=== PATIENT | female | born 1965 | race Caucasian/White ===

== ENCOUNTER 2017-11-04 04:46 | Emergency (ER) | payer OTHER ==
[~2017-11-04] VITALS: Ht 167.6 cm; Wt 51.8 kg
[2017-11-04] MEDS ORDERED: DEXAMETHASONE 4 MG/ML, 1ML IVPush ONE (05:30)
[2017-11-04] MEDS ORDERED: METOCLOPRAMIDE 5 MG/ML, 2ML IVPush ONE (05:30)
[2017-11-04] MEDS ORDERED: SODIUM CHLORIDE FLUSH 10ML SYR IVF ONE (05:30)
[2017-11-04] MEDS ORDERED: ACETAMINOPHEN 500 MG TABLET PO ONE (05:30)
[2017-11-04] MEDS ORDERED: KETOROLAC 30 MG/1 ML IVPush ONE (05:30)
[2017-11-04] MEDS ORDERED: SUMATRIPTAN 6MG/0.5ML SQ ONE ×2 (05:30→05:50)
[2017-11-04] MEDS ORDERED: SODIUM CHLORIDE 0.9% 1,000ML IVBOLUS ONE (05:30)
[2017-11-04] MEDS ORDERED: METOCLOPRAMIDE 5 MG/ML, 2ML ONE (05:37)
[2017-11-04] MEDS ORDERED: KETOROLAC 30 MG/1 ML ONE (05:37)
[2017-11-04] MEDS ORDERED: DEXAMETHASONE 4 MG/ML, 5ML ONE (05:37)
[2017-11-04] MEDS ORDERED: ACETAMINOPHEN 500 MG TABLET ONE (05:37)
[2017-11-04] MEDS: DIPHENHYDRAMINE 50 MG/ML, 1ML IVPush ONE ×2 (05:46→05:54)
[2017-11-04 07:23] VITALS: BP 129/41
== END 2017-11-04 07:57 | disposition home or self-care (01) ==
LOC: ED 07:02
DX: G43.011 Migraine without aura, intractable, with status migrainosus (principal)
CPT/HCPCS: 96372; 96374; 96375; 99284; J1100; J1200; J1885; J2765; J3030; J7030

== ENCOUNTER → 2018-02-27 | Outpatient (CLI) | payer OTHER ==
[~2018-02-27] MED LIST: BUPR300T4 PO; CLON0.25 PO; DOXY25TA18 PO; FLUO20TA25 PO; LAMO300T2 PO; SPIR50TA4 PO
[2018-02-27 13:11] LABS: CHLORIDE 103 mmol/L (98-107)
[2018-02-27 13:22] LABS: ALANINE AMINOTRANSFERASE 24 U/L (12-78); ALBUMIN 3.9 g/dL (3.4-5.0); ALKALINE PHOSPHATASE 55 U/L (45-117); ANION GAP 6 mmol/L (5-15); BILIRUBIN,TOTAL 0.5 mg/dL (0.2-1.0); CALCIUM 9.3 mg/dL (8.5-10.1); CREATININE 0.99 mg/dL (0.55-1.02); TOTAL PROTEIN 7.4 g/dL (6.4-8.2)
== END | disposition home or self-care (01) ==
LOC: STAR 02-25 13:42
PROVIDERS: ATTEND Surgery
DX: Z01.818 Encounter for other preprocedural examination (principal); K40.90 Unilateral inguinal hernia, without obstruction or gangrene, not specified as recurrent
CPT/HCPCS: 36415; 80053

== ENCOUNTER 2018-03-04 14:12 | Observation (INO) | payer OTHER ==
[2018-02-27 15:51] VITALS: BP 110/71
[~2018-03-04] VITALS: Ht 167.6 cm; Wt 76.3 kg
[2018-03-04] MEDS ORDERED: LACTATED RINGERS 1,000 ML IV SCH (14:46)
[2018-03-04] MEDS ORDERED: ACETAMINOPHEN 500 MG TABLET PO ONE (15:00)
[2018-03-04] MEDS ORDERED: GABAPENTIN 300 MG CAPSULE PO ONE (15:00)
[2018-03-04] MEDS ORDERED: MIDAZOLAM 1 MG/ML, 2ML ONE (15:12)
[2018-03-04] MEDS ORDERED: FENTANYL PF 250 MCG/5ML ONE (15:12)
[2018-03-04] MEDS ORDERED: PROPOFOL 10 MG/ML, 20ML ONE (15:13)
[2018-03-04] MEDS ORDERED: GLYCOPYRROLATE 0.2MG/1ML, 5ML ONE (15:13)
[2018-03-04] MEDS ORDERED: ONDANSETRON 2MG/ML, 2ML ONE (15:13)
[2018-03-04] MEDS ORDERED: DEXAMETHASONE 4 MG/ML, 1ML ONE (15:13)
[2018-03-04] MEDS ORDERED: ROCURONIUM 10MG/ML,5ML ONE (15:13)
[2018-03-04] MEDS ORDERED: NEOSTIGMINE 1 MG/ML, 10ML ONE (15:13)
[2018-03-04] MEDS ORDERED: CEFAZOLIN 1,000 MG ONE (15:13)
[2018-03-04 15:42] LABS: HCG UR SG 1.007 (1.003-1.030)
[2018-03-04] MEDS ORDERED: PROMETHAZINE 12.5 MG SUPP PR PRN (17:00)
[2018-03-04] MEDS ORDERED: ONDANSETRON 2MG/ML, 2ML IV PRN (17:00)
[2018-03-04] MEDS ORDERED: LABETALOL 5MG/ML, 20ML IV PRN (17:00)
[2018-03-04] MEDS ORDERED: MORPHINE SULFATE 4 MG/ML, 1ML IVPush PRN ×2 (17:00→21:00)
[2018-03-04] MEDS ORDERED: ONDANSETRON ODT 8 MG PO PRN (17:00)
[2018-03-04] MEDS ORDERED: PROMETHAZINE 25 MG/ML, 1ML IM PRN ×2 (17:00)
[2018-03-04] MEDS ORDERED: PROMETHAZINE 25 MG SUPP PR PRN (17:00)
[2018-03-04] MEDS ORDERED: PROMETHAZINE 25 MG/ML, 1ML IV PRN (17:00)
[2018-03-04] MEDS ORDERED: OXYcodone 5 MG/5 ML ORAL.SOL UDC PO PRN (17:00)
[2018-03-04] MEDS ORDERED: FENTANYL PF 100 MCG/2ML IV PRN (17:00)
[2018-03-04] MEDS ORDERED: hydrALAzine 20 MG/ML, 1ML IV PRN (17:00)
[2018-03-04] MEDS ORDERED: MEPERIDINE/PF 25MG/0.5ML IVPush PRN (17:00)
[2018-03-04] MEDS ORDERED: BUPIVACAINE/PF-EPI 0.5% 1:200K INFIL ONE (17:14)
[2018-03-04] MEDS ORDERED: KETOROLAC 30 MG/1 ML ONE (17:28)
[2018-03-04] MEDS ORDERED: OXYcodone 5 MG/5 ML ORAL.SOL UDC ONE (17:55)
[2018-03-04] MEDS ORDERED: FENTANYL PF 100 MCG/2ML ONE (17:55)
[2018-03-04] MEDS ORDERED: BUPIVACAINE/PF-EPI 0.5% 1:200K ONE (18:03)
[2018-03-04] MEDS ORDERED: hydrALAzine 20 MG/ML, 1ML ONE (18:05)
[2018-03-04] MEDS ORDERED: METOPROLOL 1 MG/ML, 5ML ONE (18:05)
[2018-03-04] MEDS ORDERED: HYDROmorphone 2 MG/ML, 1ML ONE (18:05)
[2018-03-04] MEDS: HYDROmorphone 2 MG/ML, 1ML IVPush PRN ×2 (18:07→18:14)
[2018-03-05] MEDS: OXYcodone/APAP 5/325MG TABLET PO PRN ×3 (00:43→13:04)
[2018-03-05 03:02] VITALS: BP 96/51
[2018-03-05 04:51] LABS: BASOPHILS # (AUTO) 0.03 x10^3/uL (0-0.1); BASOPHILS % (AUTO) 0 % (0-1); EOSINOPHILS % (AUTO) 0 % (1-7); LYMPHOCYTES # (AUTO) 0.52 x10^3/uL (1-3.4); LYMPHOCYTES % (AUTO) 4 % (22-44); MD NO; MEAN CORPUSCULAR HEMOGLOBIN 31.7 pg (27.0-34.8); MEAN CORPUSCULAR HGB CONC 33.2 g/dL (32.4-35.8); MEAN CORPUSCULAR VOLUME 95.6 fL (80-100); MEAN PLATELET VOLUME 8.4 fL (7.4-10.4); MONOCYTES # (AUTO) 0.75 x10^3/uL (0.2-0.8); MONOCYTES % (AUTO) 5 % (2-9); NEUTROPHILS # (AUTO) 13.22 x10^3/uL (1.8-6.8); NEUTROPHILS % (AUTO) 91 % (42-75); PLATELET COUNT 213 x10^3/uL (130-400); RED BLOOD COUNT 4.24 x10^6/uL (3.82-5.3); RED CELL DISTRIBUTION WIDTH 12.6 % (9.6-15.2)
[2018-03-05 07:57] VITALS: BP 97/52
[2018-03-05 10:29] VITALS: BP 109/64
[2018-03-05] MEDS ORDERED: OXYC-302 PO (10:52)
[2018-03-05 13:12] VITALS: BP 117/74
== END 2018-03-05 16:01 | disposition home or self-care (01) ==
LOC: OR 14:12 → 4NOR 18:47 → OR 23:53 → 4NOR 23:54 → DCLOUNGE 03-05 15:39
PROVIDERS: ADMIT Surgery; ATTEND Surgery
DX: K40.90 Unilateral inguinal hernia, without obstruction or gangrene, not specified as recurrent (principal); H53.2 Diplopia; R42 Dizziness and giddiness
CPT/HCPCS: 36415; 49650; 81025; 85025; C1781; G0378; J0690; J1100; J1170; J1885; J2250; J2405; J2704; J2710; J3010; J3490; J7120; S2900